=== PATIENT | female | born 1955 | race Caucasian/White ===

== ENCOUNTER 2025-02-26 14:08 | Outpatient (CLI) | payer BC, SELFPAY | END 2025-02-26 14:09 | disposition home or self-care (01) | LOC: NFLDREF 02-27 11:52 | PROVIDERS: PCP Pediatrics; Referring Provider Pediatrics; Visit Provider Family Medicine | DX: Z00.00 Encounter for general adult medical examination without abnormal findings (principal); Z13.6 Encounter for screening for cardiovascular disorders | CPT/HCPCS: 80053; 80061 ==

== ENCOUNTER 2025-03-07 13:33 | Outpatient (CLI) | payer BC, SELFPAY ==
[2025-03-07] MEDS: PERFLUTREN LIPID MICROSPHERES 2 ML VIAL IVP (14:24)
--- NOTE | 2025-03-07 14:44 | W.PM.STED ---
Stress Test Note Providers Referring provider: Torsten Wright Primary care provider: Zulema Mortensen Stress test physician: Nette Ordonez Stress Test Note Stress test ordered: Stress Echo Indication for test: Dyspnea Stress test medicine: Definity Results discussion: Resting EKG: Sinus rhythm with sinus arrhythmia, rate 87 beats per minute. Resting blood pressure: 112/66 Stress test: Patient is consented on ordered stress test of treadmill exercise stress echo, agrees to proceed. Standard Chet protocol was followed. Patient exercised to 9 minutes 2nd, stopping due to being at target heart rate and meeting exercise capacity. This was equivalent to 10.3 Mets. She had a maximum heart rate of 161 beats per minute which was 125% of a calculated target heart rate of 128, also above a calculated maximal heart rate of 150. She had a maximal blood pressure of 178/84, giving a rate pressure product of 28,658. There was no arrhythmia, no diagnostic ischemia. Patient had no concerning symptoms, only some mildly shortness of breath towards the end of exercise but nothing that I would see as being out of proportion for her level of work. Echo images are pending to couple this for a full formal diagnostic. Impression: Subjectively negative, objectively negative EKG portion of this stress test. Follow up suggested: Patient is discharged home in stable condition, will await echo images to couple this for a full formal result. She has a follow-up in March with her primary provider, did discuss that echo report should be available typically within 48 hours if not sooner. She can get this report from her primary provider.
[2025-03-07 14:47] VITALS: BP 142/70; PULSE 102; RESP 20; O2SAT 98
== END 2025-03-07 13:34 | disposition home or self-care (01) ==
LOC: STRESS 13:34
PROVIDERS: PCP Pediatrics; Visit Provider Family Medicine
DX: R06.09 Other forms of dyspnea (principal); I34.0 Nonrheumatic mitral (valve) insufficiency
CPT/HCPCS: 93016; 93325; 93351; Q9957

== ENCOUNTER 2025-03-08 08:07 | Outpatient (CLI) | payer BC, SELFPAY ==
--- NOTE | 2025-03-08 08:15 | CRLHL7_ITS ---
For Patients: As a result of the Century Cures Act, medical imaging exams and procedure reports are released immediately into your electronic medical record. You may view this report before your referring provider. If you have questions, please contact your health care provider. Indication: Headaches. Throbbing in face. Blurry vision. Technique: Multiplanar multisequence noncontrast MR images of the brain. Comparison: None. Findings: Minimal diffuse cerebral volume loss. No mass effect or midline shift. No parenchymal signal abnormalities. No intracranial hemorrhage or pathologic extra-axial fluid collection. No diffusion restriction to suggest acute infarction. Left Meckel cave cephalocele. Non-expansile T1/T2 hyperintense lesion within the anterior midline frontal calvarium measuring 2.2 cm demonstrating internal stippling. The major arterial flow voids of the skull base are preserved. The globes are symmetric. Small maxillary sinus retention cysts or polyps. Mild paranasal sinus mucosal thickening. Small left and trace right mastoid fluid. Impression: 1. No acute intracranial abnormality. 2. Minimal diffuse cerebral volume loss. 3. Non-expansile lesion within the anterior midline frontal calvarium demonstrates characteristics most consistent with an hemangioma. Dictated by Chinedu Mcduffie MD @ 03/08/2025 9:04:10 AM (Electronically Signed)
== END 2025-03-08 08:08 | disposition home or self-care (01) ==
PROVIDERS: PCP Pediatrics; Visit Provider Family Medicine
DX: R51.9 Headache, unspecified (principal); H53.8 Other visual disturbances; G93.9 Disorder of brain, unspecified
CPT/HCPCS: 70551